=== PATIENT | male | born 1955 | race Caucasian/White ===

== ENCOUNTER 2017-11-19 10:20 | Observation (INO) | payer SELFPAY ==
[2017-11-19] MEDS ORDERED: Ketorolac 30 MG/ML SDV IVPUSH ONE (10:21)
[2017-11-19] MEDS ORDERED: Ondansetron 4 MG/2 ML SDV IVPUSH ONE (10:21)
[2017-11-19] MEDS ORDERED: Sodium Chloride 0.9% 1,000 ML IV ONE (10:21)
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
--- NOTE | 2017-11-19 10:56 | CT ---
EXAMINATION: CT cervical spine HISTORY: Pain COMPARISON: None TECHNIQUE: Axial CT images obtained through the cervical spine without contrast. Coronal and sagittal reconstructions obtained. FINDINGS: The cervical spinal alignment is normal. Vertebral body heights appear well maintained. Bon e mineralization is normal. Moderate marginal osteophytes are noted with uncovertebral and several os teophyte disc complexes. There is no fracture or acute osseous abnormality. Emphysematous changes noted within the lung apices. IMPRESSION: 1. Moderate degenerative changes noted within the cervical spine without an acute osseous finding.
--- NOTE | 2017-11-19 10:59 | CT ---
EXAMINATION: Non contrast CT head. Coronal and sagittal reformats. HISTORY: Pain FINDINGS: No evidence of intra or extra axial hemorrhage, mass, midline shift, hydrocephalus or edema. There i s soft tissue swelling within the right occipital region. No hypoattenuation changes in the major vascular territories to suggest acute infarct. No abnormal intracranial calcifications are detected. No evidence of substantial vascular calcificat ions. Paranasal sinuses and mastoid air cells are well aerated without substantial findings. Orbits and gl obes are symmetric. Pituitary fossa appears unremarkable. Calvarium is intact. No evidence of skull fracture. IMPRESSION: No acute intracranial findings.
[2017-11-19 11:01] LABS: CHLORIDE,CL 105 mmol/L (98-107); SODIUM,NA 140 mmol/L (136-148)
--- NOTE | 2017-11-19 11:26 | CR ---
EXAMINATION: Portable chest radiograph. HISTORY: Pain. FINDINGS: The trachea is midline. The cardiomediastinal silhouette is within normal limits. No pulmonary infilt rates, effusions or pneumothorax. Mild interstitial prominence. Osseous structures appear unremarkable. IMPRESSION: No acute cardiopulmonary process.
--- NOTE | 2017-11-19 11:28 | CR ---
EXAMINATION: Pelvis HISTORY: Pain COMPARISON: None TECHNIQUE: AP view FINDINGS: There is no acute osseous abnormality, dislocation, or fracture. Severe joint space narrowi ng noted within the right hip. Osteophyte formation and subchondral sclerosis noted within the hips b ilaterally. The SI joints are symmetric. The iliopectineal lines appear intact. Mild degenerative holly nges noted within the lower lumbar spine. IMPRESSION: 1. 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 2. No acute osseous abnormalities identified.
--- NOTE | 2017-11-19 11:31 | CR ---
EXAMINATION: Lumbar spine HISTORY: Pain COMPARISON: None TECHNIQUE: AP and lateral views FINDINGS: The lumbar spinal alignment is normal. The vertebral body heights appear maintained. No def inite fracture or acute osseous abnormality. Bone mineralization is normal. The SI joints are symmetr ic. Marginal osteophytes are noted. IMPRESSION: Mild degenerative changes without acute findings.
--- NOTE | 2017-11-19 11:33 | CR ---
EXAMINATION: Left shoulder HISTORY: Pain COMPARISON: None TECHNIQUE: AP and lateral views FINDINGS/IMPRESSION: Advanced osteoarthritic changes and moderate joint space narrowing noted within the left glenohumeral joint. Mild acromioclavicular osteophytic changes. Bone mineralization otherwis e appears normal without an acute osseous abnormality.
[2017-11-19] MEDS ORDERED: Morphine 4 MG/ML Syringe IVPUSH ONE (11:49)
[2017-11-19] MEDS ORDERED: Iopamidol 755 MG/ML 500 ML Multipack Bottle IVPUSH STA (12:14)
[2017-11-19] MEDS ORDERED: Ondansetron 4 MG/2 ML SDV IVPUSH PRN (12:33)
[2017-11-19] MEDS ORDERED: Morphine 10 MG/ML Syringe IVPUSH PRN (12:33)
[2017-11-19] MEDS ORDERED: Acetaminophen 325 MG Tab PO PRN (12:33)
[2017-11-19] MEDS ORDERED: Enoxaparin 40 MG/0.4 ML Syringe SUBCUT SCH (12:45)
[2017-11-19] MEDS ORDERED: Nitroglycerin 0.4 MG Tab.SL SL PRN (12:49)
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
[2017-11-19] MEDS ORDERED: Morphine 2 MG/ML Syringe IVPUSH PRN (13:34)
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
[2017-11-19] MEDS ORDERED: Lisinopril 10 MG Tab PO ONE ×3 (22:41→22:42)
[2017-11-19] MEDS: Metoprolol Succinate 50 MG Tab.ER PO SCH (23:13)
[2017-11-19] MEDS: Furosemide 20 MG Tab PO SCH (23:14)
[2017-11-20 06:09] LABS: CHLORIDE,CL 105 mmol/L (98-107); SODIUM,NA 139 mmol/L (136-148)
[2017-11-20] MEDS ORDERED: Lisinopril 10 MG Tab PO SCH (09:00)
[2017-11-20] MEDS: Furosemide 20 MG Tab PO SCH (09:51)
[2017-11-20] MEDS: Metoprolol Succinate 50 MG Tab.ER PO SCH (09:53)
[2017-11-20] MEDS ORDERED: Enoxaparin 40 MG/0.4 ML Syringe SUBCUT SCH (13:00)
[2017-11-20] MEDS ORDERED: Morphine 4 MG/ML Syringe IVPUSH PRN (15:16)
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
[2017-11-20] MEDS ORDERED: Simvastatin 40 MG Tab PO SCH (21:00)
[2017-11-20] MEDS ORDERED: Simvastatin 40 MG Tab PO ONE (22:44)
--- NOTE | 2017-11-21 17:33 | ECHO ---
The echocardiogram report can be seen in this patient's EMR (electronic medical record) in the Reports section. The echocardiogram report has also been scanned into PACS and can be seen there. [facility]
== END 2017-11-20 16:00 | disposition home or self-care (01) ==
LOC: MW.ED 10:20 → MW.MS 13:12
PROVIDERS: ADMIT Family Medicine; ATTEND Family Medicine
DX: R07.89 Other chest pain (principal); I10 Essential (primary) hypertension; I72.3 Aneurysm of iliac artery; E78.00 Pure hypercholesterolemia, unspecified; F17.210 Nicotine dependence, cigarettes, uncomplicated; I16.0 Hypertensive urgency; J43.9 Emphysema, unspecified; J40 Bronchitis, not specified as acute or chronic; V69.40XA Driver of heavy transport vehicle injured in collision with unspecified motor vehicles in traffic accident, initial encounter; Z79.899 Other long term (current) drug therapy; Z79.82 Long term (current) use of aspirin; Z88.0 Allergy status to penicillin
CPT/HCPCS: 36415; 70450; 71045; 71260; 72100; 72125; 72170; 73030; 74177; 80053; 81001; 83735; 84443; 84484; 85025; 93005; 93306; 96361; 96372; 96374; 96375; 99285; A9270; G0378; G0390; J1650; J1885; J2270; J2405; J7040; Q9967; 99284